=== PATIENT | male | born 1955 ===

== ENCOUNTER 2022-01-19 12:30 | Emergency (ER) | payer OTHER, MEDICARE ==
[2022-01-19] MEDS ORDERED: Sodium Chloride 0.9% 10 ML Syringe FLUSH PRN (12:56)
[2022-01-19 13:12] LABS: CHLORIDE,CL 104 mEq/L (98-106); SODIUM,NA 141 mEq/L (136-145)
[2022-01-19 13:20] LABS: ESTIMATED GFR 94 mL/min (>=60)
[2022-01-19] MEDS: Sodium Chloride 0.9% 1,000 ML IV ONE (13:46)
[2022-01-19] MEDS: Morphine 2 MG/ML SYRINGE IVPUSH ONE (13:48)
[2022-01-19] MEDS: HYDROmorphone 1 MG/ML Syringe IVPUSH ONE ×2 (13:52→14:52)
[2022-01-19] MEDS: Ondansetron 4 MG/2 ML SDV IVPUSH ONE (13:52)
== END 2022-01-19 17:20 ==
LOC: CC.ED 12:30
DX: S06.0X9A Concussion with loss of consciousness of unspecified duration, initial encounter (principal); S22.43XA Multiple fractures of ribs, bilateral, initial encounter for closed fracture; S42.002A Fracture of unspecified part of left clavicle, initial encounter for closed fracture; S32.009A Unspecified fracture of unspecified lumbar vertebra, initial encounter for closed fracture; S22.081A Stable burst fracture of T11-T12 vertebra, initial encounter for closed fracture; Z79.82 Long term (current) use of aspirin; Z79.899 Other long term (current) drug therapy; Z20.822 Contact with and (suspected) exposure to COVID-19; W12.XXXA Fall on and from scaffolding, initial encounter
CPT/HCPCS: 36415; 70450; 71250; 72125; 72131; 74176; 80053; 81001; 82150; 83605; 83690; 85025; 85610; 87804; 96361; 96374; 96375; 96376; 99285; 99285-25; J1170; J2270; J2405; J7030; U0002